=== PATIENT | female | born 1965 | race Caucasian/White ===

== ENCOUNTER → 2018-03-09 | Outpatient (CLI) | payer OTHER ==
--- NOTE | 2018-03-09 17:07 | KCIC ---
Indications: Chronic low back pain extending into the left hip. The pain is increasing recently. No known recent injury. Three-view lumbar spine series: The transverse processes are intact. No compression fracture or discitis or osteolytic process or anterolisthesis is seen. IMPRESSION: No acute osseous abnormality is evident. 2 view left hip with AP view of the pelvis: No acute fracture or dislocation or osteolytic process is seen. No significant arthritic change of either hip is evident. No diastases of the symphysis pubis or either SI joint is seen. IMPRESSION: No acute osseous abnormality. Electronically signed by: David Steve MD (03/09/2018 5:04 PM) [facility]
== END | disposition home or self-care (01) ==
LOC: KCIC 11:50
PROVIDERS: ATTEND Nurse Practitioner Family
DX: M54.32 Sciatica, left side (principal); G89.29 Other chronic pain
CPT/HCPCS: 72100; 73502